=== PATIENT | male | born 1950 | race Caucasian/White ===

== ENCOUNTER → 2019-05-30 07:44 | Outpatient (CLI) | payer MEDICARE, OTHER, SELFPAY ==
--- NOTE | 2019-05-30 | DI.ECHO.S_ITS ---
[facility] +---------+ : : [address] : : : : [id number] : : : : Phone: [phone]---------+ Echocardiogram Report + + :Name: LARS DEL CID Study Date: 05/30/2019 Height: 72 in : :[facility] Exam Location: [facility] Weight: 205 lb : : Gender: Male BSA: 2.2 m2 : :: 1950 Age: 68 yrs BP: 123/72 mmHg: :Reason For Study: Chest pain : :Ordering Physician: Bree : :Ajit Performed By: Ellen Page : + + Interpretation Summary The left ventricle is normal in size. The ejection fraction is estimated to be 65-70%. The right ventricle is normal in size and function. No significant valvular pathology seen. The aortic root is mildly dilated. The IVC is of normal diameter and collapses greater than 50% with a sniff. This suggests a low right atrial pressure of 3 mm Hg. The patient had frequent PVCs during the exam. Procedure: A two-dimensional transthoracic echocardiogram with color flow and Doppler was performed. The study quality was technically adequate. There is no prior echocardiogram noted for this patient. The patient was in normal sinus rhythm during the exam. The patient had frequent PVCs during the exam. Left Ventricle: There is borderline proximal septal thickening noted. The left ventricle is normal in size. There is no thrombus. The ejection fraction is estimated to be 65-70%. There are no focal wall motion abnormalities. Dyssynchrony during PVCs. Diastolic parameters suggest a relaxation abnormality of the left ventricle, consistent with probable normal filling pressures. Right Ventricle: The right ventricle is normal in size and function. Atria: The left atrium is borderline dilated. Right atrial size is normal. There is no Doppler evidence for an interatrial shunt. Mitral Valve: The mitral valve leaflets appear borderline thickened, but open well. There is a flat closure plane of the the mitral valve leaflets. There is systolic anterior motion of the chordal apparatus. There is trace mitral regurgitation. Aortic Valve: The aortic valve is trileaflet. The aortic valve opens well. There is no aortic valve stenosis. No aortic regurgitation is present. Tricuspid Valve: The tricuspid valve is normal in structure and function. There is a trace or physiologic amount of tricuspid regurgitation. Pulmonary artery pressures cannot be estimated because of the lack of a measurable TR jet velocity. Pulmonic Valve: The pulmonic valve is not well visualized. There is a trace or physiologic amount of pulmonic regurgitation. Great Vessels: The aortic root is mildly dilated. The ascending aorta is at the upper limits of normal in size. The pulmonary is not well visualized. The IVC is of normal diameter and collapses greater than 50% with a sniff. This suggests a low right atrial pressure of 3 mm Hg. Pericardium/ Pleura There is no pericardial effusion. There is no pleural effusion. MMode/2D Measurements & Calculations LVIDd: 5.3 cm Ao root diam: 4.1 cm LVIDs: 2.5 cm asc Aorta Diam: 3.4 cm FS: 52.4 % IVSd: 0.84 cm LVPWd: 0.79 cm LV samson. diameter/BSA (cm/m^2): 2.5 LV sys. diameter/BSA (cm/m^2): 1.2 LA A2 area: 22.4 cm2 RA long axis: 5.3 cm LA A4 area: 21.8 cm2 RA area: 19.2 cm2 LA length (vol): 5.8 cm RA vol: 59.0 ml LA vol: 71.5 ml RA : 27.4 ml/m2 LA vol index: 33.2 ml/m2 IVC diam: 2.1 cm RVD1 (basal): 4.8 cm RVD2 (mid): 4.2 cm Doppler Measurements & Calculations Ao V2 max: 140.0 cm/sec LVOT Max Blane: 135.7 cm/sec Ao V2 mean: 102.9 cm/sec LV V1 max P.4 mmHg Ao max P.8 mmHg LV V1 VTI: 25.2 cm Ao mean P.6 mmHg sev ratio: 0.87 Ao V2 VTI: 29.1 cm MV E max blane: 67.9 cm/sec MV P1/2t max blane: 68.0 cm/sec MV A max blane: 72.3 cm/sec MVA(P1/2t): 3.3 cm2 MV E/A: 0.94 Med Peak E' Blane: 8.1 cm/sec E/E' med: 8.4 Lat Peak E' Blane: 7.2 cm/sec E/E' lat: 9.4 E/e' average: 8.9 MV dec time: 0.23 sec MV P1/2t: 66.7 msec Reading Physician:02:59 PM
--- NOTE | 2019-05-30 08:47 | PM.TREADMILL ---
Cardiac Stress Test Report Referral & Results Date Patient Seen: 05/30/19 Time Patient Seen: 08:30 Requesting provider: Bree Fong Indication: Chest discomfort Rest ECG: Sinus rhythm with frequent PVCs Procedure Note: Today following both written and verbal informed consent, the patient was exercised according to a standard Abraham protocol. The patient exercised for a total of 8 minutes 57 seconds achieving a maximum heart rate of 150. Patient's maximum systolic blood pressure was 230. This was an estimated 10.1 METs. Frequent PVCs at rest but none during exercise. No signs or symptoms of angina. Diffuse [address] deviations in multiple leads resolving rapidly with rest. Functional activity impairment-20% on the active scale. Impression: Low probability for ischemia. Thompson treadmill score of 5 for takes 97% survival over 5 years. Please note: Actual ECG tracings can be found in the PACS system.
== END ==
PROVIDERS: Visit Provider Family Medicine
DX: R07.89 Other chest pain (principal)
CPT/HCPCS: 93016; 93017; 93018; 93306

== ENCOUNTER → 2024-02-16 09:18 | Outpatient (CLI) | payer MEDICARE, OTHER, SELFPAY ==
--- NOTE | 2024-02-16 | DI.NM.S_ITS ---
PROCEDURE: NM TE PERF SPECT REST & STR Rest and exercise myocardial perfusion SPECT with gated imaging and ejection fraction RADIOPHARMACEUTICAL: 24.6 mCi Tc-99m sestamibi IV at rest and 26.7 mCi Tc-99m sestamibi IV at peak exercise. A [id number] was performed. INDICATIONS: Chest discomfort, atypical TECHNIQUE: Radiopharmaceutical was injected at peak stress test, and also at rest. SPECT images were obtained. SPECT myocardial perfusion images were displayed in short axis, horizontal long axis, and vertical long axis views. Gated images were reviewed using TopiVert software. COMPARISON: None. CARDIAC STRESS: A standard Abraham treadmill exercise tolerance test was performed by the patient under the supervision of an attending staff. The patient exercised for 7 minutes and 23 seconds; 8.3 METS; functional aerobic impairment (SKYLAR) is -13%. Hemodynamic data: There is normal blood pressure and heart rate response to exercise stress. Patient achieved 93% of maximum predicted heart rate at peak exercise. Maximum blood pressure 180/90. Symptoms: Patient denied chest pain during exercise. EKG: No diagnostic EKG changes of ischemia; no ectopy. FINDINGS: Raw data: There is good myocardial labeling by radiotracer. No significant motion artifacts. Kdqd-du-umwad ratio is 0.25 (normal is less than 0.38 for sestamibi tracer, and less than 0.50 for thallium tracer). Left ventricle function: Gated images demonstrate normal left ventricle wall thickening. No segmental wall motion abnormality. No transient ischemic dilation; TID is 0.95 (normal less than 1.3). The left ventricle resting end-diastolic volume is 122 mL. Left ventricle stress ejection fraction is 73%; normal values are above 45%. Myocardial perfusion: There is normal distribution of activity in the left and right ventricular myocardium. No fixed or reversible perfusion defects. IMPRESSION: Low risk study. No evidence of exercise-induced ischemia or scar on ECG and SPECT imaging. Top normal LV size based on calculated resting EDV with normal function. Normal hemodynamic response. Good exercise capacity. Dictated by: Maryanne Rodriguez D.O. on 02/18/2024 at 15:33 Approved by: Maryanne Rodriguez D.O. on 02/18/2024 at 15:40
== END ==
PROVIDERS: Referring Provider Internal Medicine; Visit Provider Internal Medicine
DX: R07.89 Other chest pain (principal)
CPT/HCPCS: 78452; 93017; A9502